=== PATIENT | female | born 1985 | race Caucasian/White ===

== ENCOUNTER 2024-02-06 14:52 | Emergency (ER) | payer OTHER, SELFPAY ==
[2024-02-06] VITALS (7 sets, daily range): BP systolic 135–180; BP diastolic 92–99; PULSE 79–89; RESP 10–24; TEMP 36.3; O2SAT 97–100
--- NOTE | ~2024-02-06 | XR_ITS ---
EXAMINATION: XR chest 2V DATE: 02/06/2024 17:54 INDICATION: Chest pain. TECHNIQUE: Frontal and lateral views of the chest were obtained. COMPARISON: None. FINDINGS: There is no pneumonia, pleural effusion, or pneumothorax. The heart size is normal. IMPRESSION: 1. No acute cardiopulmonary disease. Reviewed, dictated and finalized at location E.
--- NOTE | ~2024-02-06 | CT_ITS ---
EXAMINATION: CTA chest PE protocol DATE: 02/06/2024 21:50 INDICATION: Chest pain. Shortness of breath. TECHNIQUE: Computed tomography angiography (CTA) of the chest was performed with 100 mL Omnipaque-350 intravenous contrast timed to evaluate the pulmonary arteries. Coronal maximum intensity projection 3D-reconstructions were created by the technologist. Automated exposure control and iterative reconst ruction technique were employed. The dose-length product was 828.12 mGy-cm. COMPARISON: None. FINDINGS: There is no pneumonia or pleural effusion. The heart size is normal. No pericardial effusio n. There is no pulmonary embolus. There is mild thoracic spondylosis. IMPRESSION: 1. No pulmonary embolus. Reviewed, dictated and finalized at location E. IMPRESSION: 1. No pulmonary embolus.
--- NOTE | 2024-02-06 17:08 | ECG_ITS ---
SEE SCANNED COPY FOR CONFIRMED REPORT MTDD
--- NOTE | 2024-02-06 17:11 | ED.CHESTPAIN ---
HPI - Chest Pain General Chief Complaint: Chest Pain <SAHIL Cid Last Filed: 02/06/24 17:19> Stated Complaint: CHESTPAIN <SAHIL Cid Last Filed: 02/06/24 17:19> Time Seen by Provider: 02/06/24 17:11 <SAHIL Cid Last Filed: 02/06/24 17:19> Focused HPI: Patient is a 38 y/o female who presents to the ED with c/o CP. Patient reports she was sick with upper respiratory sx's a few weeks ago. Since then, she has been having intermittent chest tightness, SOB and heavy breathing with exertion. She then began having chest pain yesterday, c/o dull pain across her chest with sharp waves of pain throughout both sides of her chest. Also reports intermittent swelling in BLE. Denies current cough, fevers, BLE pain, abd pain, N/V. Patient has a known RLL lung mass, has previously seen Dr. Ross with oncology, but never had biopsy. She is a former smoker. Denies Hx of HTN, HLD, DM. GENERAL: Well-appearing, morbidly obese with BMI of 47.6, and in no acute distress. HEAD: Normocephalic, atraumatic. CHEST: Clear to auscultation. ?No respiratory distress. HEART: Regular rate and rhythm.? MSK: No lower extremity edema. No calf tenderness. No chest wall tenderness to palpation. NEURO: ?Alert and oriented x3. PSYCHIATRY: Anxious, tearful. Patient screened in triage and initial orders placed.??Additional care and disposition to be based upon?diagnostic testing and treatment. <SAHIL Cid Last Filed: 02/06/24 17:19> Source: patient <SAHIL Cid Last Filed: 02/06/24 17:19> Mode of arrival: ambulatory <SAHIL Cid Last Filed: 02/06/24 17:19> Limitations: no limitations <SAHIL Cid Last Filed: 02/06/24 17:19> Related Data Allergies/Adverse Reactions: Allergies Allergy/AdvReac Type Severity Reaction Status Date / Time doxycycline Allergy Hives Verified 02/06/24 15:48 Sulfa (Sulfonamide Allergy Hives Verified 02/06/24 15:48 Antibiotics) <Regi Reyes PA-C - Last Filed: 02/06/24 17:19> Review of Systems Review of Systems: CONST: Generalized malaise. HEENT: Congestion C/V: Slight chest tightness RESP: Slight cough GI: No abdominal pain : No dysuria. M/S: Muscle aches SKIN: No rash. NEURO: [No focal numbness or weakness] PSYCH: [No depression] <Olivia Vargas MD - Last Filed: 02/07/24 04:16> Exam Narrative: EXAMINATION OF ORGAN SYSTEMS/BODY AREAS: Constitutional: Vital signs per nursing GENERAL: Appears tired HEAD: Normal with no signs of head trauma. EYES: EOMI, conjunctiva normal ENT: Hearing grossly intact LUNGS: Nonlabored breathing. HEART: [Regular rate and rhythm] ABD: [Soft], [nontender to palpation] EXT: Normal range of motion SKIN: [No rashes or lesions.] NEURO: [Alert and oriented x 3. No gross focal sensory or strength deficits.] PSYCH: Anxious <Olivia Vargas MD - Last Filed: 02/07/24 04:16> Course Vital Signs Vital signs: Vital Signs Temperature 97.3 F L 02/06/24 15:47 Pulse Rate 83 02/06/24 15:47 Respiratory Rate 24 H 02/06/24 15:47 Blood Pressure 180/98 H 02/06/24 15:47 Pulse Oximetry 100 02/06/24 15:47 Temperature 97.3 F L 02/06/24 15:47 Pulse Rate 89 02/06/24 22:34 Respiratory Rate 16 02/06/24 22:34 Blood Pressure 135/92 H 02/06/24 22:34 Pulse Oximetry 98 02/06/24 22:34 Oxygen Delivery Room Air 02/06/24 21:08 <Regi Reyes PA-C - Last Filed: 02/06/24 17:19> Vital Signs Temperature 97.3 F L 02/06/24 15:47 Pulse Rate 83 02/06/24 15:47 Respiratory Rate 24 H 02/06/24 15:47 Blood Pressure 180/98 H 02/06/24 15:47 Pulse Oximetry 100 02/06/24 15:47 Temperature 97.3 F L 02/06/24 15:47 Pulse Rate 89 02/06/24 22:34 Respiratory Rate 16 02/06/24 22:34 Blood Pressure 135/92 H 02/06/24 22:34 Pulse Oximetry 98 02/06/24 22:34 Oxyge
[2024-02-06 17:42] LABS: Basophils Percent Auto 0.4 % (0.2-1.2); Eosinophils Absolute Auto 0.1 K/mm3 (0-0.3); Eosinophils Percent Auto 2.2 % (0-4.4); Hematocrit 43.2 % (37.0-47.0); Hemoglobin 13.9 g/dL (12.0-15.0); Immature Granulocyte Absolute 0.02 K/mm3 (0.00-0.031); Immature Granulocyte Percent A 0.4 % (0-0.5); Lymphocytes Absolute Auto 1.26 K/mm3 (0.9-3.2); Lymphocytes Percent Auto 22.9 % (18.3-44.2); Mean Corpuscular HGB Conc 32.2 g/dl (32-36); Mean Corpuscular Hemoglobin 27.7 pg (26-34); Mean Corpuscular Volume 86.2 fl (80-100); Mean Platelet Volume 9.5 fl (7.4-10.4); Monocytes Absolute Auto 0.7 K/mm3 (0.1-0.6); Monocytes Percent Auto 13.2 % (2.6-8.5); Neutrophils Absolute Auto 3.4 K/mm3 (1.3-6.7); Neutrophils Percent Auto 60.9 % (45.5-73.1); Platelet Count Result 310 k/mm3 (150-375); Red Blood Count 5.01 M/mm3 (4.2-5.4); Red Cell Distribution Width 13.1 % (11.5-14.5); White Blood Count 5.5 K/mm3 (4.5-10.0)
[2024-02-06 17:54] LABS: Prothrombin Time 13.8 Seconds (11.1-14.7)
[2024-02-06 17:55] LABS: Partial Thromboplastin Time 28.3 Seconds (22.3-36.8)
[2024-02-06 17:57] LABS: Alanine Aminotransferase 71 U/L (6-35); Albumin Level 4.2 g/dL (3.5-5.1); Alkaline Phosphatase 51 U/L (38-126); Anion Gap 5 mmol/L (4-12); Aspartate Amino Transferase 39 U/L (14-36); Bilirubin,Total 0.4 mg/dL (0.2-1.3); Blood Urea Nitrogen 14 mg/dL (7-17); Calcium 9.3 mg/dL (8.4-10.2); Carbon Dioxide 28 mmol/L (22-30); Chloride 103 mmol/L (98-107); Estimated CRCL calculation 160 ml/min; Estimated Glomerular Filt Rate > 60; Glucose 96 mg/dL (65-110); Lipase 99 U/L (23-300); Potassium 4.2 mmol/L (3.4-5.0); Sodium 136 mmol/L (137-145)
[2024-02-06 17:59] LABS: D Dimer 0.85 ug/mL (<0.48)
[2024-02-06 18:04] LABS: NT Pro B Type Natriuretic Pept 92 pg/mL (19.9-100)
[2024-02-06 18:06] LABS: Troponin I < 0.012 ng/mL (0.000-0.034)
[2024-02-06 21:46] LABS: Troponin I < 0.012 ng/mL (0.000-0.034)
[2024-02-06] MEDS: ACETAMINOPHEN 500 MG TABLET 1000 MG PO (22:32)
== END 2024-02-06 23:10 | disposition home or self-care (01) ==
PROVIDERS: Emergency Medicine; Physician Assistant; Emergency Provider Emergency Medicine; PCP Nurse Practitioner Family
DX: R07.89 Other chest pain (principal); R53.83 Other fatigue; Z87.891 Personal history of nicotine dependence
CPT/HCPCS: 36415; 71046; 71275; 80053; 83690; 83880; 84484; 85025; 85380; 85610; 85730; 93005; 99284; A9270; Q9967